=== PATIENT | female | born 1990 | race Caucasian/White ===

== ENCOUNTER 2016-10-27 03:24 | Emergency (ER) | payer BC, MEDICAID ==
[2016-10-27] MEDS ORDERED: Ondansetron INJ* 2 MG/ML VIAL IV ONE (05:05)
[2016-10-27] MEDS ORDERED: NS 0.9% 1000 ML* 1,000 ML IV ONE (05:05)
[2016-10-27 05:41] LABS: Albumin 4.7 g/dL (3.2-5.2); BUN/Creatinine Ratio 16.7 (8-20); Calcium 9.7 mg/dL (8.6-10.3); EGFR African American 96.6 (>60); EGFR Non-African American 75.1 (>60); Globulin 4.3 g/dL (2-4); Hematocrit 39 % (35-47); Hemoglobin 13.2 g/dl (12.0-16.0); Mean Corpuscular HGB Conc 34 g/dl (31-36); Mean Corpuscular Hemoglobin 30 pg (27-31); Mean Corpuscular Volume 87 fL (80-97); Mean Platelet Volume 9 um3 (7.4-10.4); Potassium 3.8 mmol/L (3.5-5.0); Red Blood Count 4.44 10^6/ul (4.0-5.4); Red Cell Distribution Width 12 % (10.5-15); Total Bilirubin 0.5 mg/dL (0.2-1.0); White Blood Count 21.2 10^3/ul (3.5-10.8)
[2016-10-27 06:33] LABS: Urine Bilirubin Negative (Negative); Urine Glucose Negative (Negative); Urine Nitrite Negative (Negative)
[2016-10-27 06:55] VITALS: BP 106/71
[2016-10-27] MEDS ORDERED: Ondansetron ODT TAB* 4 MG PO ONE (06:56)
--- NOTE | 2016-10-27 20:28 | ED ---
Jagruti Farnsworth Alok, scribed for Ariel Hemphill MD on 10/27/16 at 0521 . Influenza-Like Illness - HPI Summary HPI Summary: 25F presents to the ED with a flu-like illness since this evening. Pt reports subjective fever, a DALY which comes and goes, throat pain, myalgia, vomiting, and abd cramping. Pt also notes pain in the back of the ears bilaterally. Pt states she felt fine this afternoon until her symptoms began at once later in the evening. Pt denies diarrhea. Pt denies hematuria, dysuria, or changes in urinary frequency. Pt denies dizziness, lightheadedness, or weakness. Pt denies abd pain or neck pain. Pt has not received a flu shot this year. Pt has h/o ear infections. Pt drinks ETOH occasionally and denies tobacco use. Her LMP was approximately one month ago; though she does not keep track regularly. - History of Current Complaint Chief Complaint: EDFluSymptoms Time Seen by Provider: 10/27/16 04:49 Hx Obtained From: Patient Onset/Duration: Lasting Hours, Still Present Severity: Moderate Associated Signs & Symptoms: Fever - subjective, Myalgia, Sore Throat, Headache , Vomiting - Allergy/Home Medications Allergies/Adverse Reactions: Allergies Allergy/AdvReac Type Severity Reaction Status Date / Time No Known Allergies Allergy Verified 10/27/16 03:33 PMH/Surg Hx/FS Hx/Imm Hx Endocrine/Hematology History: Denies: Hx Diabetes Cardiovascular History: Denies: Hx Hypertension EENT History: Reports: Other - h/o ear infections Infectious Disease History: No Infectious Disease History: Denies: Traveled Outside the [place] in Last 30 Days - Family History Known Family History: Negative: Cardiac Disease, Hypertension, Diabetes - Social History Occupation: Employed Full-time Lives: With Family Alcohol Use: Daily Substance Use Type: Reports: Other Smoking Status (MU): Never Smoked Tobacco Review of Systems Positive: Fever - subjective. Negative: Chills Negative: Erythema Positive: Sore Throat, Ear Ache Negative: Chest Pain Negative: Shortness Of Breath, Cough Positive: Abdominal Pain, Vomiting, Nausea. Negative: Diarrhea Negative: dysuria, frequency, hematuria Positive: Myalgia. Negative: Edema Negative: Rash Neurological: Other - negative: Dizziness Positive: Headache All Other Systems Reviewed And Are Negative: Yes Physical Exam - Summary Physical Exam Summary: Constitutional: Well-developed, Well-nourished, Alert. (-) Distressed Skin: Warm, Dry HENT: Normocephalic; Atraumatic Eyes: Conjunctiva normal Neck: Musculoskeletal ROM normal neck. (-) JVD, (-) Stridor, (-) Tracheal deviation Cardio: Rhythm regular, rate normal, Heart sounds normal; Intact distal pulses; The pedal pulses are 2+ and symmetric. Radial pulses are 2+ and symmetric. (-) Murmur Pulmonary/Chest wall: Effort normal. (-) Respiratory distress, (-) Wheezes, (-) Rales Abd: Soft, (-) Tenderness, (-) Distension, (-) Guarding, (-) Rebound Musculoskeletal: (-) Edema Lymph: (-) Cervical adenopathy Neuro: Alert, Oriented x3 Psych: Mood and affect Normal Triage Information Reviewed: Yes Vital Signs On Initial Exam: Initial Vitals Temp Pulse Resp BP Pulse Ox 98.7 F 106 16 112/77 100 10/27/16 03:31 10/27/16 03:31 10/27/16 03:31 10/27/16 03:31 10/27/16 03:31 Vital Signs Reviewed: Yes - [place] Coma Scale Coma Scale Total: 15 Diagnostics - Vital Signs Vital Signs Temp Pulse Resp BP Pulse Ox 10/27/16 04:30 101 112/71 99 10/27/16 04:16 105 100 10/27/16 04:14 111/68 10/27/16 04:12 99.3 F 103 16 111/68 100 10/27/16 03:31 98.7 F 106 16 112/77 100 - Laboratory Result Diagrams: 10/27/16 05:05 10/27/16 05:05 Lab Statement: Any lab studies that have been ordered have been reviewed, and results considered in the medical decision making process. Flu Symptom Course/Dx - Course Course Of Treatment: No neck or abd pain. R/o meningitis, sepsis, PNA, or clinically significant infection. Pt tolerated PO. Pt has no PCP and [facility]. Expect elevated WBC due to viral illness. - Diagnoses Provider Diagnoses: Influenza-like illness Discharge - Discharge Plan Condition: Stable Disposition: HOME Prescriptions: Ondansetron ODT TAB* [Zofran 4 MG Odt TAB*] 4 mg PO Q8H PRN #12 tab.odt PRN Reason: Nausea/Vomiting Patient Education Materials: Viral Syndrome (ED) Forms: *Work Release Referrals: Non Staff,Doctor [Primary Care Provider] - Additional Instructions: Return to the ED for new or worsening symptoms. Follow up with [facility] in 2 or 3 days. The documentation as recorded by the Jagruti denney Alok accurately reflects the service I personally performed and the decisions made by , Ariel Hemphill MD.
== END 2016-10-27 07:03 | disposition home or self-care (01) ==
LOC: ED 03:24
DX: J11.1 Influenza due to unidentified influenza virus with other respiratory manifestations (principal); R50.9 Fever, unspecified; J02.9 Acute pharyngitis, unspecified; R51 Headache; R11.10 Vomiting, unspecified; H92.09 Otalgia, unspecified ear
CPT/HCPCS: 36415; 80053; 81003; 83605; 85025; 85610; 85730; 87040; 87502; 87651; 96374; 99282; A9270-GY; J2405

== ENCOUNTER 2016-11-01 08:57 | Emergency (ER) | payer BC ==
--- NOTE | 2016-11-01 09:32 | UC ---
Eye Complaint HPI - HPI Summary HPI Summary: worsening sinus pain sore throat, pain in both ears - History of Current Complaint Chief Complaint: UCRespiratory Stated Complaint: COUGH SORE THROAT Time Seen by Provider: 11/01/16 09:20 Hx Obtained From: Patient Hx Last Menstrual Period: 10/30/16 ?: No Onset/Duration: Gradual Onset, Lasting Days - 7, Worse Since - today Severity Initially: Moderate Severity Currently: Moderate Pain Intensity: 8 Pain Scale Used: 0-10 Numeric Character: Throbbing Aggravating Factor(s): Nothing Alleviating Factor(s): Nothing Associated Signs And Symptoms: Positive: Negative - Allergies/Home Medications Allergies/Adverse Reactions: Allergies Allergy/AdvReac Type Severity Reaction Status Date / Time No Known Allergies Allergy Verified 10/27/16 03:33 Home Medications: Home Medications Dextromethorphan-Phenylephrine [Day Time Multi-Symptom Co 10-5-325 mg] 1 cap PO 11/01/16 [History] Ibuprofen [Advil] 400 mg PO 11/01/16 [History] PMH/Surg Hx/FS Hx/Imm Hx Previously Healthy: Yes Endocrine History Of: Denies: Diabetes Cardiovascular History Of: Denies: Hypertension - Surgical History Surgical History: None - Family History Known Family History: Negative: Cardiac Disease, Hypertension, Diabetes - Social History Occupation: Employed Full-time Lives: With Family Alcohol Use: Weekly Substance Use Type: Marijuana, Other Substance Use Comment - Amount & Last Used: nightly Smoking Status (MU): Never Smoked Tobacco Review of Systems Constitutional: Negative, Chills, Fatigue Skin: Negative Eyes: Negative, Other - throbbing pressure behind eyes ENT: Sore Throat, Ear Ache, Nasal Discharge Respiratory: Cough Cardiovascular: Negative Gastrointestinal: Negative Genitourinary: Negative Motor: Negative Neurovascular: Negative Musculoskeletal: Negative Neurological: Negative Psychological: Negative All Other Systems Reviewed And Are Negative: Yes Physical Exam Triage Information Reviewed: Yes Appearance: Well-Appearing, No Pain Distress, Well-Nourished Vital Signs: Initial Vital Signs Temp 98.8 F 11/01/16 09:22 Pulse 76 11/01/16 09:22 Resp 18 11/01/16 09:22 BP 122/76 11/01/16 09:22 Pulse Ox 100 11/01/16 09:22 Vital Signs Reviewed: Yes Eye Exam: Normal Eyes: Positive: Conjunctiva Clear ENT Exam: Normal ENT: Positive: Normal ENT inspection, Hearing grossly normal, Pharyngeal erythema, Nasal congestion, Nasal drainage, TMs normal. Negative: Tonsillar swelling, Tonsillar exudate, Trismus, Muffled/hoarse voice Dental Exam: Normal Neck exam: Normal Neck: Positive: Supple, Nontender, No Lymphadenopathy Respiratory Exam: Normal Respiratory: Positive: Chest non-tender, Lungs clear, Normal breath sounds, No respiratory distress, No accessory muscle use Cardiovascular Exam: Normal Cardiovascular: Positive: RRR, No Murmur, Pulses Normal, Brisk Capillary Refill Musculoskeletal Exam: Normal Musculoskeletal: Positive: Strength Intact, ROM Intact, No Edema Neurological Exam: Normal Neurological: Positive: Alert, Muscle Tone Normal Psychological Exam: Normal Skin Exam: Normal Eye Complaint Course/Dx - Course Course Of Treatment: Flonase , day quil, augmentin, increase fluids, diflucan prn referral for pcp - Differential Dx/Diagnosis Differential Diagnosis/HQI/PQRI: Conjunctivitis, Other - acute sinusitis Provider Diagnoses: Acute sinusitis Discharge - Discharge Plan Condition: Stable Disposition: HOME Prescriptions: Amoxicillin/Clavulanate TAB* [Augmentin TAB 875*] 875 mg PO BID #20 tab Fluconazole 150 MG (NF) [Diflucan 150 mg (NF)] 150 mg PO ONCE #2 tab Fluticasone NASAL SPRAY 50MCG* [Flonase NASAL SPRAY 50MCG*] 2 spray BOTH NARES DAILY #1 btl Patient Education Materials: Sinusitis (ED), How to Use Nasal [place] (ED) Referrals: [facility] REFERRAL [Outside] Non Staff,Doctor [Primary Care Provider] -
[2016-11-01 09:38] VITALS: BP 122/76
== END 2016-11-01 09:49 | disposition home or self-care (01) ==
LOC: UCEAST 08:57
DX: J01.90 Acute sinusitis, unspecified (principal)
CPT/HCPCS: 99212; G0463

== ENCOUNTER 2017-10-23 02:25 | Inpatient (IN) | payer BC ==
[2017-10-23] MEDS ORDERED: Glycerin ADULT SUPP PR PRN (03:16)
[2017-10-23] MEDS ORDERED: Witch Hazel PAD* JAR TOPICAL PRN (03:16)
[2017-10-23] MEDS ORDERED: Measles, Mumps,Rubella VACC* 0.5 ML/VIAL SUBCUT ONE (03:16)
[2017-10-23] MEDS ORDERED: Dibucaine 1% 28.35 GM TUBE PR PRN (03:16)
[2017-10-23] MEDS ORDERED: Acetaminophen TAB* 325 MG PO PRN (03:16)
--- NOTE | 2017-10-23 03:25 | HP ---
General Information - General Information Maternal Age: 26 Grav: 1 Para: 0 SAB: 0 IEA: 0 Estimated Due Date: 11/22/17 Determined By: LMP Gestational Age in Weeks and Days: 35 Weeks and 3 Days Maternal Blood Type and Rh: O Positive - Results this Serology/RPR Result: Non-Reactive Rubella Result: Non-Immune HBsAg Result: Negative HIV Result: Negative Past Medical History Pertinent Past Medical History: Non-Contributory Pertinent Past Surgical History: None Pertinent Family History: Non-Contributory - Antepartal Records Antepartal Records: Reviewed, Complicated by: - 48 hours scant- moderate bleeding resolved, normal labs, contractions ceased, discharged 10/23/17 Review of Systems Constitutional: Uncomfortable CV Complaint: No Respiratory: Shortness of Breath: No Genitourinary: Bleeding, Leaking Fluid Musculoskeletal: Contractions Neurological: No Headache, No Visual Changes Movement: Normal Exam Allergies/Adverse Reactions: Allergies amoxicillin Allergy (Verified 10/21/17 11:12) Rash Deferred on arrival - Measurements Height: 5 ft 6 in Weight: 190 lb Body Mass Index (BMI): 30.7 Pre- Weight: 170 lb - Exam Abdomen: No Upper Quadrant Pain Breast: Breast Exam Deferred CVA: No CVA Tenderness Extremities: No Edema Heart: Normal Rhythm/Heart Sounds HEENT: No Significant Findings Rectal: Rectal Exam Deferred Thyroid: No Thyromegaly - Abdominal Exam Abdomen Exam: Non-Tender - Ultrasound/Biophysical Profile Ultrasound Status: Not Done Targeted Exam Findings See L&D Outpatient Visit Provider Note for Findings: Yes Estimated Weight: deferred Cervical Exam: Complete Effacement: Complete Presenting Part: Vertex Membrane Status: AROM Amniotic Fluid Evaluation: Gross Rupture Bleeding/Discharge: Bloody Show Assessment/Plan - Reason for Visit Reason for Visit: Patient arrived fully dilated by car with head delivered upon arrival, body delivered in [facility] [place] lobby. Per patient reports mild irregular contractions started at home, labor progressed rapidly. Patient called the [facility] service on the way to [facility] [place]. - Obstetrical Risk Factors Obstetrical Risk Factors: GBS Unknown, - Received 2 doses of Betamethasone - Date/Time of Admission Date of Admission: 10/23/17 Time of Admission: 03:33
[2017-10-23] MEDS ORDERED: OXYTOCIN* 10 UNITS/ML 1 ML VIAL IM ONE (03:40)
[2017-10-23] MEDS: Ibuprofen TAB* 600 MG PO PRN ×3 (07:42→21:09)
[2017-10-23] MEDS: Docusate CAP* 100 MG PO SCH ×3 (07:43→21:09)
[2017-10-23] MEDS ORDERED: Simethicone TAB* 80 MG TAB.CHEW PO SCH (08:30)
[2017-10-23 20:24] VITALS: BP 133/81
[2017-10-24 03:38] LABS: ABS Basophils 0.1 10^3/ul (0-0.2); ABS Eosinophils 0 10^3/ul (0-0.6); ABS Lymphocytes 3.3 10^3/ul (1.0-4.8); ABS Monocytes 1.1 10^3/ul (0-0.8); ABS Neutrophils 15.2 10^3/ul (1.5-7.7); ABS Nucleated RBC 0 10^3/ul; Eosinophil % 0 % (0-6); Hematocrit 38 % (35-47); Hemoglobin 12.7 g/dl (12.0-16.0); Lymphocyte % 16.6 % (25-47); Mean Corpuscular HGB Conc 34 g/dl (31-36); Mean Corpuscular Hemoglobin 29 pg (27-31); Mean Corpuscular Volume 87 fL (80-97); Mean Platelet Volume 9.5 um3 (7.4-10.4); Nucleated Red Blood Cells % 0; Platelet Count 199 10^3/ul (150-450); Red Blood Count 4.35 10^6/ul (4.0-5.4); Red Cell Distribution Width 14 % (10.5-15); White Blood Count 19.6 10^3/ul (3.5-10.8)
[2017-10-24] MEDS ORDERED: Ferrous Gluconate TAB* 324 MG TAB PO SCH (09:00)
== END 2017-10-24 04:30 | disposition home or self-care (01) | DRG 560 ==
LOC: MCHOB 02:25
PROVIDERS: ADMIT Obstetrics & Gynecology; ATTEND Midwife
PROC: 10E0XZZ Delivery of Products of Conception, External Approach (ICD-10-PCS; principal; 2017-10-23)
PROC: 0UQMXZZ Repair Vulva, External Approach (ICD-10-PCS; 2017-10-23)
PROC: 4A1HXCZ Monitoring of Products of Conception, Cardiac Rate, External Approach (ICD-10-PCS; 2017-10-23)
PROC: 0HQ9XZZ Repair Perineum Skin, External Approach (ICD-10-PCS; 2017-10-23)
DX: O60.14X0 Preterm labor third trimester with preterm delivery third trimester, not applicable or unspecified (principal); O77.0 Labor and delivery complicated by meconium in amniotic fluid; O62.3 Precipitate labor; O70.0 First degree perineal laceration during delivery; Z3A.35 35 weeks gestation of pregnancy; Z37.0 Single live birth
CPT/HCPCS: 36415; 85025; 88307; A9270-GY

== ENCOUNTER 2023-01-21 14:07 | Inpatient (IN) ==
[2023-01-21] MEDS ORDERED: Lactated Ringers SEPSIS* BAG 2,180 ML IV ONE (15:01)
[2023-01-21 15:30] LABS: ABS Lymphocytes 0.3 10^3/uL (1.0-4.8); ABS Monocytes 0.1 10^3/uL (0.0-0.9); ABS Neutrophils 6.5 10^3/uL (1.5-7.6); ABS Nucleated RBC 0.02 10^3/ul; Hematocrit 39.8 % (35-45); Hemoglobin 13.7 g/dL (11.5-14.3); Lymphocyte % 3.9 %; Mean Corpuscular Hemoglobin 29.6 pg (27-33); Mean Corpuscular Hgb Conc 34.3 g/dL (31-36); Mean Corpuscular Volume 86.2 fL (80-97); Mean Platelet Volume 8.8 fL (7.5-11.2); Nucleated Red Blood Cells % 0.3 /100 WBC (0.0-0.4); Platelet Count 144 10^3/uL (150-450); Red Blood Count 4.61 10^6/uL (3.63-4.92); Red Cell Distribution Width 13.1 % (12-17); White Blood Count 6.9 10^3/uL (3.8-11.8)
[2023-01-21 15:44] LABS: Activated Partial Thrombo Time 33.8 seconds (26.0-38.0); INR 1.5 (0.88-1.18)
[2023-01-21 15:52] LABS: High Sens Troponin Baseline 4 pg/mL (<15)
[2023-01-21 15:56] LABS: ALT 76 U/L (7-52); AST 99 U/L (13-39); Albumin 4.3 g/dL (3.2-5.2); Alkaline Phosphatase 56 U/L (35-149); Anion Gap 9 mmol/L (2-16); Blood Urea Nitrogen 13 mg/dL (6-24); C Reactive Protein 97.63 mg/L (<8.01); CO2 Carbon Dioxide 24 mmol/L (22-32); Calcium 8.8 mg/dL (8.6-10.3); Chloride 100 mmol/L (101-111); Creatinine, Serum 1.12 mg/dL (0.51-0.95); Globulin 4.2 g/dL (2-4); Glucose 115 mg/dL (70-100); Potassium 3.8 mmol/L (3.5-5.0); Sodium 133 mmol/L (135-145); Total Protein 8.5 g/dL (6.4-8.9); eGFR CKD-EPI 66.2 (>60)
[2023-01-21 16:54] LABS: High Sensitivity Troponin 1 Hr 5 pg/mL (<15)
[2023-01-21 17:22] LABS: Urine Appearance Cloudy; Urine Bilirubin Negative (Negative); Urine Blood Negative (Negative); Urine Color Yellow; Urine Glucose Negative (Negative); Urine Ketones Negative (Negative); Urine Nitrite Negative (Negative); Urine Protein 1+(30 mg/dL) (Negative); Urine Specific Gravity 1.013 (1.002-1.030); Urine Urobilinogen Negative (Negative)
[2023-01-21 17:24] LABS: Urine Bacteria Absent (Absent); Urine Red Blood Cell Trace(0-2/hpf) (Absent); Urine Squamous Epithelial Cell Present (Absent); Urine White Blood Cell Trace(0-5/hpf) (Absent)
[2023-01-21] MEDS: Lactated Ringers 1000 ml BAG 1,000 ML IV SCH (18:45)
[2023-01-21] MEDS ORDERED: DOXYcycline 100 MG in NS 0.9% 250 ml 250 ML IVPB SCH (19:00)
[2023-01-21 19:01] LABS: HCG Pregnancy < 0.60 mIU/mL
[2023-01-21] MEDS ORDERED: Ondansetron 4 mg VIAL 2 MG/ML 2 ml VIAL IV PRN (20:33)
[2023-01-21] MEDS ORDERED: cefTRIAXone 1 gm/50 mL D5W 1 GM/50 ML BAG IV ONE ×2 (20:34→20:35)
[2023-01-22] MEDS: Lactated Ringers 1000 ml BAG 1,000 ML IV SCH (01:08)
[2023-01-22] MEDS ORDERED: Lactated Ringers 1000 ml BAG 1,000 ML IV ONE ×2 (01:45→02:55)
[2023-01-22 03:45] LABS: ABS Lymphocytes 0.4 10^3/uL (1.0-4.8); ABS Monocytes 0.1 10^3/uL (0.0-0.9); ABS Neutrophils 3.8 10^3/uL (1.5-7.6); Hematocrit 32.1 % (35-45); Hemoglobin 11.4 g/dL (11.5-14.3); Lymphocyte % 10.3 %; Mean Corpuscular Hemoglobin 30.2 pg (27-33); Mean Corpuscular Hgb Conc 35.5 g/dL (31-36); Mean Corpuscular Volume 85.1 fL (80-97); Nucleated Red Blood Cells % 0.1 /100 WBC (0.0-0.4); Platelet Count 105 10^3/uL (150-450); Red Blood Count 3.77 10^6/uL (3.63-4.92); White Blood Count 4.3 10^3/uL (3.8-11.8)
[2023-01-22 03:49] LABS: INR 1.63 (0.88-1.18)
[2023-01-22 04:00] LABS: Albumin 3.1 g/dL (3.2-5.2); Calcium 7.5 mg/dL (8.6-10.3); Creatinine, Serum 0.78 mg/dL (0.51-0.95); Magnesium 1.5 mg/dL (1.9-2.7); Potassium 3.6 mmol/L (3.5-5.0); Total Bilirubin 0.2 mg/dL (0.2-1.0); Total Protein 6.1 g/dL (6.4-8.9); eGFR CKD-EPI 102.1 (>60)
[2023-01-22] MEDS: DOXYcycline 100 MG in NS 0.9% 250 ml 250 ML IVPB SCH ×2 (04:41→17:04)
[2023-01-22] MEDS ORDERED: DOXYcycline 100 MG in NS 0.9% 250 ml 250 ML IVPB SCH (05:00)
[2023-01-22] MEDS ORDERED: Magnesium Sulfate 2 gm BAG 2 GM/50 ML BAG IVPB ONE (08:00)
[2023-01-23] MEDS ORDERED: Lactated Ringers 1000 ml BAG 1,000 ML IV ONE ×2 (03:07→07:10)
[2023-01-23] MEDS: DOXYcycline 100 MG in NS 0.9% 250 ml 250 ML IVPB SCH ×2 (05:01→17:18)
[2023-01-23 06:13] LABS: ABS Lymphocytes 0.8 10^3/uL (1.0-4.8); ABS Monocytes 0.1 10^3/uL (0.0-0.9); Eosinophil % 0.5 %; Hematocrit 30.2 % (35-45); Hemoglobin 10.5 g/dL (11.5-14.3); Lymphocyte % 27.4 %; Mean Corpuscular Hemoglobin 29.7 pg (27-33); Mean Corpuscular Hgb Conc 34.7 g/dL (31-36); Mean Corpuscular Volume 85.7 fL (80-97); Mean Platelet Volume 9.2 fL (7.5-11.2); Nucleated Red Blood Cells % 0.1 /100 WBC (0.0-0.4); Platelet Count 91 10^3/uL (150-450); Red Blood Count 3.52 10^6/uL (3.63-4.92); White Blood Count 2.9 10^3/uL (3.8-11.8)
[2023-01-23 06:57] LABS: Calcium 7.5 mg/dL (8.6-10.3); Creatinine, Serum 0.69 mg/dL (0.51-0.95); Potassium 3.7 mmol/L (3.5-5.0); eGFR CKD-EPI 116.7 (>60)
[2023-01-23] MEDS: Polyethylene Glycol 3350 17 GM PACKET PO SCH (09:15)
[2023-01-23 15:14] LABS: EBV Capsid Ag IgG Ab Positive (Negative); EBV Capsid Ag IgM Ab Negative (Negative); Epstein-Barr Nuclear Antigen Positive (Negative)
[2023-01-23] MEDS ORDERED: Senna TAB 8.6 mg TAB PO SCH (21:00)
[2023-01-24] MEDS: DOXYcycline 100 MG in NS 0.9% 250 ml 250 ML IVPB SCH (04:44)
[2023-01-24 06:35] LABS: ABS Lymphocytes 1.7 10^3/uL (1.0-4.8); ABS Monocytes 0.3 10^3/uL (0.0-0.9); ABS Nucleated RBC 0.01 10^3/ul; Eosinophil % 0.5 %; Hematocrit 31.4 % (35-45); Hemoglobin 10.8 g/dL (11.5-14.3); Lymphocyte % 41.9 %; Mean Corpuscular Hemoglobin 29.8 pg (27-33); Mean Corpuscular Hgb Conc 34.4 g/dL (31-36); Mean Corpuscular Volume 86.7 fL (80-97); Mean Platelet Volume 9.2 fL (7.5-11.2); Nucleated Red Blood Cells % 0.2 /100 WBC (0.0-0.4); Platelet Count 104 10^3/uL (150-450); Red Blood Count 3.62 10^6/uL (3.63-4.92); Red Cell Distribution Width 13.1 % (12-17)
[2023-01-24 06:50] LABS: Calcium 8.1 mg/dL (8.6-10.3); Creatinine, Serum 0.68 mg/dL (0.51-0.95); Magnesium 1.9 mg/dL (1.9-2.7); Potassium 3.9 mmol/L (3.5-5.0); eGFR CKD-EPI 117.1 (>60)
[2023-01-24 10:14] LABS: HIV 4th Generation Nonreactive (Nonreactive)
[2023-01-24] MEDS: Polyethylene Glycol 3350 17 GM PACKET PO SCH (12:22)
[2023-01-24 15:16] VITALS: BP 108/62
[2023-01-24 17:46] LABS: Anaplasma phagocytophilum Negative (Negative); B. miyamotoi PCR, B Negative (Negative); Babesia divergens/MO-1 Negative (Negative); Babesia ducani Negative (Negative); Ehrlichia chaffeensis Negative (Negative); Ehrlichia ewingii/canis Negative (Negative); Ehrlichia muris eauclairensis Negative (Negative)
== END 2023-01-24 14:00 | disposition home or self-care (01) | DRG 720 ==
LOC: ED 14:07 → SUATTDRO 18:08 → EDHOLD 18:08 → MEDTELE 20:26
PROVIDERS: ADMIT Family Medicine; ATTEND Internal Medicine